=== PATIENT | male | born 2000 ===

== ENCOUNTER 2021-04-20 21:42 | Emergency (ER) | payer SELFPAY ==
[2021-04-21 00:09] VITALS: BP 124/70
[2021-04-21] MEDS ORDERED: HYDROcodone/ACETAMINOPHEN 5-325 MG TAB PO ONE (00:40)
[2021-04-21] MEDS ORDERED: ONDANSETRON 4 MG ODT TAB PO STA (00:40)
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
== END 2021-04-21 03:00 | disposition home or self-care (01) ==
LOC: ED 21:42
DX: S00.93XA Contusion of unspecified part of head, initial encounter (principal); S10.93XA Contusion of unspecified part of neck, initial encounter; S00.03XA Contusion of scalp, initial encounter; Z91.011 Allergy to milk products; Z79.899 Other long term (current) drug therapy; X58.XXXA Exposure to other specified factors, initial encounter; Y93.89 Activity, other specified; Y92.89 Other specified places as the place of occurrence of the external cause; Y99.8 Other external cause status
CPT/HCPCS: 70450; 70486; 99283; Q0162